=== PATIENT | female | born 1960 | race African-American/Black ===

== ENCOUNTER 2017-03-30 18:51 | Emergency (ER) | payer BC ==
[2017-03-30] MEDS ORDERED: CLINDAMYCIN HCL 150 MG CAPSULE PO ONE (19:51)
[2017-03-30] MEDS ORDERED: LIDOCAINE 1% INJ-PF (10 MG/ML) 30 ML SDV INJ ONE (19:51)
[2017-03-30] MEDS ORDERED: HYDROCODONE/ACETAMINOPHEN 5-325 MG (6 TAB/ER DISP) PO PRN (19:51)
--- NOTE | 2017-03-30 20:02 | ER Document Report ---
ED Oral Problem - General Chief Complaint: Toothache Stated Complaint: TOOTHACHE Time Seen by Provider: 03/30/17 19:41 Mode of Arrival: Ambulatory Information source: Patient Notes: 56-year-old female presents to ED with 4 pain and swelling to the right upper gum and face. She states that she has had a bad tooth that is been broken off for about a year. She states Wednesday it started hurting and then this morning she woke up with a swollen gum and face and eye not in the side of her gum. TRAVEL OUTSIDE OF THE [place] IN LAST 30 DAYS: No - HPI Patient complains to provider of: Swelling of face, Swelling of jaw, Toothache Onset: Other - Broken off tooth for about a year pain started Wednesday swelling started this morning Onset: Gradual Quality of pain: Throbbing Severity: Moderate Associated symptoms: Facial pain, Jaw pain, Toothache - Dental abscess Worsened by: Heat Relieved by: Nothing Similar symptoms previously: Yes Recently seen / treated by doctor/dentist: No - Related Data Allergies/Adverse Reactions: No Known Allergies Allergy (Verified 03/30/17 18:56) Past Medical History - General Information source: Patient - Social History Smoking Status: Never Smoker Cigarette use (# per day): No Chew tobacco use (# tins/day): No Smoking Education Provided: No Frequency of alcohol use: None Drug Abuse: None Occupation: [employer] Lives with: Family Family History: Arthritis, CVA, DM, Hyperlipidemia, Hypertension. denies: CAD, COPD, Malignancy Patient has suicidal ideation: No Patient has homicidal ideation: No - Past Medical History Cardiac Medical History: Reports: None Pulmonary Medical History: Reports: None EENT Medical History: Reports: None Neurological Medical History: Reports: None Endocrine Medical History: Reports: None Renal/ Medical History: Reports: None Malignancy Medical History: Reports: None GI Medical History: Reports: None Musculoskeltal Medical History: Reports None Skin Medical History: Reports None Psychiatric Medical History: Reports: None Traumatic Medical History: Reports: None Infectious Medical History: Reports: None Surgical Hx: Negative Past Surgical History: Reports: None - Immunizations Immunizations up to date: Yes Hx Diphtheria, Pertussis, Tetanus Vaccination: Yes Review of Systems - Review of Systems Constitutional: No symptoms reported EENT: Mouth pain, Mouth swelling, Other - Facial swelling Cardiovascular: No symptoms reported Respiratory: No symptoms reported Gastrointestinal: No symptoms reported Genitourinary: No symptoms reported Female Genitourinary: No symptoms reported Musculoskeletal: No symptoms reported Skin: No symptoms reported Hematologic/Lymphatic: No symptoms reported Neurological/Psychological: No symptoms reported -: Yes All other systems reviewed and negative Physical Exam - Vital signs Vitals: Temp Pulse BP Pulse Ox 99.5 F 81 145/85 H 100 03/30/17 18:56 03/30/17 18:56 03/30/17 18:56 03/30/17 18:56 Interpretation: Normal - General General appearance: Appears well, Alert - HEENT Head: Normocephalic, Atraumatic Eyes: Normal Pupils: PERRL Ears: Normal External canal: Normal Tympanic membrane: Normal Sinus: Normal Nasal: Normal Mouth/Lips: Caries - With dental abscess Mucous membranes: Normal Teeth diagram: 1 - Facial and gum swelling with a dental abscess lateral to tooth #2. Tooth is broken off at the gumline. - Respiratory Respiratory status: No respiratory distress Chest status: Nontender Breath sounds: Normal Chest palpation: Normal - Cardiovascular Rhythm: Regular Heart sounds: Normal auscultation Murmur: No - Abdominal Inspection: Normal Distension: No distension Bowel sounds: Normal Tenderness: Nontender Organomegaly: No organomegaly - Back Back: Normal, Nontender - Extremities General upper extremity: Normal inspection, Nontender, Normal color, Normal ROM , Normal temperature General lower extremity: Normal inspection, Nontender, Normal color, Normal ROM , Normal temperature, Normal weight bearing. No: Marie's sign - Neurological Neuro grossly intact: Yes Cognition: Normal Orientation: AAOx4 Jl Coma Scale Eye Opening: Spontaneous Miranda Coma Scale Verbal: Oriented Jl Coma Scale Motor: Obeys Commands Miranda Coma Scale Total: 15 Speech: Normal Motor strength normal: LUE, RUE, LLE, RLE Sensory: Normal - Psychological Associated symptoms: Normal affect, Normal mood - Skin Skin Temperature: Warm Skin Moisture: Dry Skin Color: Normal Course - Re-evaluation Re-evalutation: 03/30/17 20:13 Patient treated with clindamycin p.o. Lawler dispense pack in the emergency room her dental abscess was I&D it with a 18-gauge needle with lidocaine. Patient was able to express the purulent drainage with her finger after the I&D and has gargled with warm water. Patient was given instructions on salt and soda solution gargles and to take clindamycin until completed patient was instructed to follow-up with a dentist to have the tooth removed. - Vital Signs Vital signs: Temp Pulse Resp BP Pulse Ox 99.5 F 81 145/85 H 100 03/30/17 18:56 03/30/17 18:56 03/30/17 18:56 03/30/17 18:56 Procedures - Incision and Drainage Right dental abscess beside tooth #2 Time completed: 20:08 Type: Simple Anesthetic type: 1% Lidocaine mL's of anesthetic: 2 Blade size: Other I&D procedure: Other - Warm water Incision Method: Incision made with needle - 18-gauge needle Amount/type of drainage: Large amount of purulent drainage Discharge - Discharge Clinical Impression: Dental abscess with toothache Condition: Stable Disposition: HOME, SELF-CARE Additional Instructions: TOOTHACHE: Your pain is due to dental decay. The tooth must be repaired in order for you to feel better. You will, therefore, be referred to a dentist. We do not have dentists on the staff at [facility]. Severe swelling or drainage around a tooth usually means a dental abscess. This also requires evaluation and treatment by the dentist, but antibiotics may be prescribed while awaiting dental treatment. You should be rechecked immediately if you develop major swelling of the face, increasing pain, a lump in the jaw or gums, headache, difficulty swallowing, or fever. ORAL NARCOTIC MEDICATION: You have been given a [employer] dispense pack for pain control. This medication is a narcotic. It's best taken with food, as nausea can result if taken on an empty stomach. Don't operate machinery or drive within six hours of taking this medication. Do not combine this medicine with alcohol, or with any medication which can cause sedation (such as cold tablets or sleeping pills) unless you get permission from the physician. Narcotics tend to cause constipation. If possible, drink plenty of fluids and eat a diet high in fiber and fruits. Please be aware that prescription narcotics also have the potential for abuse. People become addicted to these medications because of the general sense of wellbeing that they induce. This feeling along with a significant reduction in tension, anxiety, and aggression provides a stimulating seductive quality to these drugs. Once your pain is under control, we encourage you to discard your unused narcotics. CLINDAMYCIN: You have been given a prescription for the antibiotic clindamycin. It is often prescribed for infections in the mouth, such as dental infections or abscesses, and for skin infections due to MRSA. It's important that you take all the medication, unless instructed otherwise by your physician. Failure to complete the entire course can result in relapse of your condition. Common side effects of antibiotics include nausea, intestinal cramping, or diarrhea. Women may develop vaginal yeast infections, and babies can get yeast (thrush) in the mouth following the use of antibiotics. Contact your physician if you develop significant side effects from this medication. Allergy to this antibiotic can result in hives, wheezing, faintness, or itching. If symptoms of allergy occur, stop the medication and call the doctor. Please massaged abscess several times today and tomorrow to remove the rest of the purulent drainage. Please gargle with warm salt water as instructed. Follow-up with the dentist as soon as possible. Please take clindamycin until completed. Salt and soda solution 1 quart of water 1 tablespoon of salt 1 teaspoon of baking soda Mixed 3 ingredients together and boil for 1 minute Placed in a covered quart jar Use 1/2 ounce of cold solution to gargle 3 times a day FOLLOW-UP CARE: You have been referred for follow-up care to the dentists listed below. Call the dentists office for an appointment as you were instructed or within the next two days. If you experience worsening or a significant change in your symptoms, notify the physician immediately or return to the Emergency Department at any time for re-evaluation. [facility] [address] [place], [place] Wednesday mornings, by appointment [facility] [address] [place] [address] [facility] [address] [facility] [address] [facility] [address] [email or web address] [address] [place] [address] Wednesday- 8:00am to 5:00 pm Will see patients from other [facility]. Charges based on income and family size and accepts Medicare, Medicaid, and Insurances Will pull molars [facility] [id number] Hours of Operation 8:00 am - 4:30 pm weekdays The following dental offices accept Medicaid: [facility] Dr. Graves Dr. Mercado Dr. Marcial Dr. Mckeon Terry Jones L[place], and [facility] oral surgery Dr. Bear ([place]) Dr. Cohen ([place]) [facility] Drs. Carter and Daryn ([place]) Dr. Lucas ([place]) [facility] Dr. Cramer ([place]) Drs. Hunter and ([place]) Medicaid Care Line Prescriptions: Clindamycin HCl 300 mg PO Q6 #28 capsule Forms: Elevated Blood Pressure
[2017-03-30 20:19] VITALS: BP 136/81
== END 2017-03-30 20:17 | disposition home or self-care (01) ==
LOC: ER 18:51
DX: K04.7 Periapical abscess without sinus (principal); K02.9 Dental caries, unspecified; K08.89 Other specified disorders of teeth and supporting structures
CPT/HCPCS: 99282; 41800; J3490

== ENCOUNTER 2017-05-18 07:28 | Emergency (ER) | payer BC ==
[2017-05-18] MEDS ORDERED: IBUPROFEN 400 MG TABLET PO ONE (08:57)
--- NOTE | 2017-05-18 09:12 | ER Document Report ---
ED General - General Chief Complaint: Flank Pain Stated Complaint: LEFT SIDE PAIN Time Seen by Provider: 05/18/17 08:53 Information source: Patient Notes: 56 ill female presents with pain in her left groin/hip radiating down her left thigh, moderate density, associated with some spotty vaginal bleeding. She has no abdominal pain groin pain, groin masses or lumps. She has been having hot flashes and irregular menses and thinks she is having menopause. No urinary symptoms no back pain or flank pain. No numbness or tingling in the legs. TRAVEL OUTSIDE OF THE [place] IN LAST 30 DAYS: No - Related Data Allergies/Adverse Reactions: No Known Allergies Allergy (Verified 05/18/17 07:30) Past Medical History - Social History Smoking Status: Never Smoker Family History: Arthritis, CVA, DM, Hyperlipidemia, Hypertension. denies: CAD, COPD, Malignancy Renal/ Medical History: Denies: Hx Peritoneal Dialysis - Immunizations Immunizations up to date: Yes Hx Diphtheria, Pertussis, Tetanus Vaccination: Yes Review of Systems - Review of Systems Notes: REVIEW OF SYSTEMS GEN: Denies fever, chills, weight loss ENT: Denies sore throat, nasal discharge, ear pain EYES: Denies blurry vision, eye pain, discharge CV: Denies chest pain, palpitations, edema RESP: Denies cough, shortness of breath, wheezing GI: Denies abdominal pain, nausea, vomiting, diarrhea MSK: Denies joint pain/swelling, edema, SKIN: Denies rash, skin lesions LYMPH: Denies swollen glands/lymph nodes NEURO: Denies headache, focal weakness or numbness, dizziness PSYCH: Denies depression, suicidal or homicidal ideation PHYSICAL EXAMINATION General: No acute distress, well-nourished Head: Atraumatic, normocephalic ENT: Mouth normal, oropharynx moist, no exudates or tonsillar enlargement Eyes: Conjunctiva normal, pupils equal, lids normal Neck: No JVD, supple, no guarding CVS: Normal rate, regular rhythm, no murmurs Resp: No resp distress, equal and normal breath sounds bilaterally GI: Nondistended, soft, no tenderness to palpation, no rebound or guarding Ext: No deformities, no edema, normal range of motion in upper and lower ext. No tenderness over the left hip greater trochanter, no pain on range of motion. Back: No CVA or midline TTP Skin: No rash, warm Lymphatic: No lymphadeopathy noted Neuro: Awake, alert. Face symmetric. GCS 15. Physical Exam - Vital signs Vitals: Temp Pulse Resp BP Pulse Ox 98.0 F 70 16 138/65 H 100 05/18/17 07:35 05/18/17 07:35 05/18/17 07:35 05/18/17 07:35 05/18/17 07:35 Course - Re-evaluation Re-evalutation: 05/18/17 09:14 Presents with mild nonreproducible left hip pain radiating to the thigh without lumbar tenderness risk factors for spinal cord compression, abdominal pain or tenderness, or other symptoms. She is very well-appearing. Differential includes musculoskeletal pain, trochanteric bursitis, muscle strain, doubt rhabdo, doubt sciatica, doubt diverticulitis or gynecologic issue. Will check a UA but this is also not likely the answer. She will be given ibuprofen and asked to follow-up with her primary care doctor. Given her lack of tenderness and focal signs on exam I do not believe she requires workup including imaging or labs today. I have discussed with the patient there likely diagnosis, aftercare plan, follow -up plans and my usual and customary return precautions. They verbalized understanding of this. 05/18/17 09:23 - Vital Signs Vital signs: Temp Pulse Resp BP Pulse Ox 98.1 F 77 16 130/66 H 100 05/18/17 11:04 05/18/17 11:04 05/18/17 11:04 05/18/17 11:04 05/18/17 11:04 - Laboratory Laboratory results interpreted by me: 05/18/17 10:05 Urine Blood LARGE H Discharge - Discharge Clinical Impression: Pain in left hip Condition: Good Disposition: HOME, SELF-CARE Additional Instructions: Based on the location and character of your pain I think it is likely due to muscles and bones. Develop abdominal pain, bulging in the groin, nausea vomiting or fever please return to the emergency room immediately. Otherwise please take Tylenol and ibuprofen for her pain and see her regular doctor within 1 week.
[2017-05-18 10:37] LABS: APPEARANCE,URINE SLIGHTLY-CLOUDY; BILIRUBIN,URINE NEGATIVE (NEGATIVE); GLUCOSE, URINE NEGATIVE (NEGATIVE); KETONES,URINE NEGATIVE (NEGATIVE); LEUKOCYTE ESTERASE,URINE NEGATIVE (NEGATIVE); NITRITE,URINE NEGATIVE (NEGATIVE); PROTEIN,URINE NEGATIVE (NEGATIVE); UROBILINOGEN,URINE NEGATIVE mg/dL (<2.0)
[2017-05-18 10:42] LABS: WBC,URINE 0-1 /HPF
[2017-05-18 10:43] LABS: BACTERIA,URINE 1+ /HPF; RBC,URINE TOO NUMEROUS TO CNT /HPF
[2017-05-18 11:05] VITALS: BP 130/66
== END 2017-05-18 11:05 | disposition home or self-care (01) ==
LOC: ER 07:28
DX: M25.552 Pain in left hip (principal); N92.6 Irregular menstruation, unspecified
CPT/HCPCS: 99284; 81025; 81001; J3490